=== PATIENT | male | born 2005 | race Two or more races ===

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

== ENCOUNTER 2024-05-12 15:37 | Emergency (ER) | payer MEDICAID ==
[2024-05-13] MEDS ORDERED: CLIN1CAP70 PO (04:15)
[2024-05-13] MEDS ORDERED: IBUP-1456 PO (04:15)
[2024-05-13] MEDS ORDERED: CEPH500C PO (04:15)
== END 2024-05-12 17:25 | disposition left against medical advice (07) ==
LOC: ER 15:37
DX: S61.411A Laceration without foreign body of right hand, initial encounter (principal); Z53.21 Procedure and treatment not carried out due to patient leaving prior to being seen by health care provider; X58.XXXA Exposure to other specified factors, initial encounter; Y93.89 Activity, other specified; Y92.89 Other specified places as the place of occurrence of the external cause; Y99.8 Other external cause status

== ENCOUNTER 2024-05-13 00:06 | Emergency (ER) | payer MEDICAID ==
[~2024-05-13] VITALS: Ht 167.6 cm; Wt 43.0 kg
[2024-05-13 00:12] VITALS: BP 143/71; PULSE 95; RESP 20; O2SAT 96
[2024-05-13] MEDS ORDERED: CEPH500C PO (04:15)
[2024-05-13] MEDS ORDERED: CLIN1CAP70 PO (04:15)
[2024-05-13] MEDS ORDERED: IBUP-1456 PO (04:15)
[2024-05-13] MEDS: IBUPROFEN 800 MG TAB PO ONE (04:39)
[2024-05-13] MEDS: cefTRIAXone SOD 1,000 MG VL IM ONE (04:40)
== END 2024-05-13 04:48 | disposition home or self-care (01) ==
LOC: ER 00:06
DX: S62.652A Nondisplaced fracture of middle phalanx of right middle finger, initial encounter for closed fracture (principal); L03.011 Cellulitis of right finger; F12.10 Cannabis abuse, uncomplicated; X50.9XXA Other and unspecified overexertion or strenuous movements or postures, initial encounter; Y93.89 Activity, other specified; Y92.89 Other specified places as the place of occurrence of the external cause; Y99.8 Other external cause status
CPT/HCPCS: 29130; 73130; 96372; 99283; J0696

== ENCOUNTER 2025-10-28 11:25 | Emergency (ER) | payer MEDICAID ==
[~2025-10-28] VITALS: Ht 170.2 cm; Wt 50.0 kg
[~2025-10-28 11:25] MED LIST: CLIN1CAP70 PO; IBUP-1456 PO
[2025-10-28] MEDS: DEXTROSE (50%) 50ML SYRG IV ONE (11:30)
--- NOTE | 2025-10-28 11:35 | ED.PDOC ---
Psychiatric HPI Comments 20 y.o male presents to the ED via EMS for an evaluation of ETOH intoxication. Patient reports he drank a couple boxes of alcohol that each contained 11.1% of alcohol considered as a wine box. Patient presents diaphoretic and has a BG of 60 upon arrival. EMS gave 4mg Zofran IV with IV fluids. No other complaint at this time. Patient denies any medical history. He admits to marijuana use as well. Time Seen by MD: 11:29 Primary Care Provider: NONE Reviewed Notes: Nurses Notes, Architecture Manager Notes, Medications, Allergies Information Source: Patient, Emergency Med Personnel Mode of Arrival: EMS Severity of Pain: None Severity of Mental Status: None Severity of Symptoms: Moderate Timing: Hours Duration: Since onset Presents with: Alcohol Intoxication Ingestion: Intentional, Multiple, ETOH Quality: Other Associated signs and symptoms: Other Past Medical History PAST MEDICAL HISTORY: Denies Surgical History: Denies all surgeries Family History Family History: Unknown Social History Smoker: Non-Smoker Alcohol: Heavy Drugs: Marijuana Lives In: Home Constitutional: reports: diaphoresis, sweats; denies: chills, fatigue, fever, malaise, weakness, others EENTM: denies: blurred vision, double vision, ear bleeding, ear discharge, ear drainage, ear pain, ear ringing, eye pain, eye redness, hearing loss, mouth pain, mouth swelling, nasal discharge, nose bleeding, nose congestion, nose pain, photophobia, tearing, throat pain, throat swelling, voice changes, others Respiratory: denies: cough, hemoptysis, orthopnea, SOB at rest, shortness of breath, SOB with excertion, stridor, wheezing, others Cardiovascular: denies: chest pain, dizzy spells, diaphoresis, Dyspnea on exertion, edema, irregular heart beat, left arm pain, lightheadedness, pa lpitations, PND, syncope, others Gastrointestinal: denies: abdomen distended, abdominal pain, blood streaked bowels, constipated, diarrhea, dysphagia, difficulty swallowing, hematemesis, melena, nausea, poor appetite, poor fluid intake, rectal bleeding, rectal pain, vomiting, others Genitourinary: denies: burning, dysuria, flank pain, frequency, hematuria, incontinence, penile discharge, penile sore, pain, testicle pain, testicle swelling, urgency, others Neurological: denies: dizziness, fainting, headache, left sided numbness, left sided weakness, numbness, paresthesia, pre-existing deficit, right sided numbness, right sided weakness, seizure, speech problems, tingling, tremors, weakness, others Musculoskeletal: denies: back pain, gout, joint pain, joint swelling, muscle pain, muscle stiffness, neck pain, others Integumetry: denies: bruises, change in color, change in hair/nails, dryness, laceration, lesions, lumps, rash, wounds, others Allergic/Immunocompromised: denies: Difficulty Healing, Frequent Infections, Hives, Itching, others Hematologic/Lymphatic: denies: anemia, blood clots, easy bleeding, easy br uising, swollen glands, others Endocrine: denies: excessive hunger, excessive sweating, excessive thirst, excessive urination, flushing, intolerance to cold, intolerance to heat, unexplained weight gain, unexplained weight loss, others Psychiatric: denies: anxiety, bipolar disorder, depression, hopeless, panic disorder, schizophrenia, sleepless, suicidal, others All Other Systems: Reviewed and Negative Physical Exam General Appearance: Moderate Distress HEENT: Normal ENT Inspection, Pharynx Normal, TMs Normal Neck: Full Range of Motion, Non-Tender, Normal, Normal Inspection Respiratory: Chest Non-Tender, Lungs Clear, No Accessory Muscle Use, No Respiratory Distress, Normal Breath Sounds Cardiovascular: No Edema, No JVD, No Murmur, No Gallop, Normal Peripheral Pulses, Regular Rate/Rhythm Breast Exam: Deferred Gastrointestinal: No Organomegaly, Non Tender, No Pulsatile Mass, Normal Bowel Sounds, Soft Genitalia: Deferred Pelvic: Deferred Rectal: Deferred Extremities: No calf tenderness, Normal capillary refill, Normal inspection, Normal range of motion, Non-tender, No pedal edema Musculoskeletal : Apperance: Normal Neurologic: Alert, visitor services assistant II-XII nml as Tested, No Motor Deficits, Normal Affect, Normal Mood, No Sensory Deficits Cerebellar Function: NOT DONE Reflexes: NOT DONE Skin: Dry, Pallor, Warm Peripheral Pulses: 3+ Radial (R), 3+ Radial (L) Lymphatic: No Adenopathy Was a procedure done? Was a procedure done?: No Psych Differential Dx Intoxication Differential Dx: Dehydration, Electrolyte Imbalance, Intoxication, Thiamine Deficiency, Thyrotoxicosis, Other (hypoglycemic ) X-Ray, Labs, Meds, VS Current Medications Medications (Trade) Dose Ordered Sig/Sara Route Start Time Stop Time Status Last Admin Dextrose 50 ml ONCE ONCE IV 10/28/25 11:24 10/28/25 11:54 DC 10/28/25 11:30 Patient feeling weak. Answering questions. Blood sugar is low. Moving his extremities. Establish intravenous access. Was given fluids. Was given dextrose. Continue to monitor. Time of 1ST Reevaluation: 11:32 Reevaluation 1ST: Unchanged Patient Education/Counseling: Diagnosis, Treatment, Prognosis Family Education/Counseling: No Family Present Departure 1 Departure Time of Disposition: 12:03 Impression: Primary Impression: Hypoglycemia Disposition: ADMITTED INPATIENT Admit to: Med Surg Condition: Guarded Critical Care Note Critical Care Time?: Yes (90 min-critical care time only) Stability Stability form required: No I personally scribed for CRISTINA HERNANDEZ MD ([email or web address]) on 10/28/25 at 11:35. Electronically submitted by Mahogany Cruz ([facility]). CRISTINA HERNANDEZ MD Oct 28, 2025 11:35
[2025-10-28 12:00] VITALS: PULSE 98; RESP 14; TEMP 98; O2SAT 99
[2025-10-28] MEDS: SODIUM CHLORIDE 0.9% 1,000 ML IV ONE ×2 (12:59→14:16)
[2025-10-28] MEDS: THIAMINE 100mg/ml INJ (200mg/2ml VIAL) IV ONE (12:59)
[2025-10-28] MEDS: ONDANSETRON HCL 4 MG/2 ML VIAL IV ONE (12:59)
--- NOTE | 2025-10-28 13:08 | DVH ---
CT HEAD WITHOUT CONTRAST INDICATION: altered EXAM DATE: 10/28/2025 12:26 PM COMPARISON: CT HEAD WITHOUT CONTRAST on DOS: 09/07/23 TECHNIQUE: CT of the head without intravenous contrast. RADIATION DOSE: CTDIvol: 51.38 mGy, DLP: 909.68 mGy*cm FINDINGS: There is no intracranial hemorrhage. There is no extra-axial fluid, mass, mass effect or midline shift. The ventricles are midline and normal in size. Basilar cisterns are patent. Butler-white differentiation is maintained. The paranasal sinuses and mastoids are well-pneumatized. Imaged portion of the orbits are unremarkable. IMPRESSION: No intracranial hemorrhage or mass effect.
[2025-10-28 13:30] VITALS: BP 124/73; PULSE 99; RESP 20; O2SAT 100
== END 2025-10-28 15:20 | disposition left against medical advice (07) ==
LOC: EDBD 11:25 → EDUNIT# 11:25 → ER 11:25
DX: F10.129 Alcohol abuse with intoxication, unspecified (principal); R51.9 Headache, unspecified; F12.90 Cannabis use, unspecified, uncomplicated; Z79.899 Other long term (current) drug therapy; Y90.9 Presence of alcohol in blood, level not specified
CPT/HCPCS: 36415; 70450; 80320; 82947; 96361; 96374; 96375; 99291; J2405; J3411; J7030; J7042; 82962